=== PATIENT | female | born 1945 | race Caucasian/White ===

== ENCOUNTER 2016-07-14 13:38 | Outpatient (CLI) | payer MEDICARE, MEDICAID ==
[2016-07-14 17:46] LABS: BILIRUBIN,URINE NEGATIVE (NEGATIVE); PH,URINE 5.5 PH (5.0-7.5)
[2016-07-14 17:50] LABS: UA CHARGE (STRIP ONLY) YES; UR CULTURE IF IND NOT INDICATED
[2016-07-14 18:07] LABS: BASOPHILS % (AUTO) 0.7 %; EOSINOPHILS % (AUTO) 0.4 %; HCT - HEMATOCRIT 36.9 % (37.0-47.0); HGB - HEMOGLOBIN 12.7 g/dL (12.0-16.0); LYMPHOCYTES # (AUTO) 1.5 10^3/uL (1.5-3.5); LYMPHOCYTES % (AUTO) 23.3 %; MEAN CORPUSCULAR HEMOGLOBIN 33.2 pg (27.0-31.0); MEAN CORPUSCULAR HGB CONC 34.3 g/dL (32.0-36.0); MEAN CORPUSCULAR VOLUME 96.6 fL (81.0-99.0); MEAN PLATELET VOLUME 7.7 fL (7.9-10.8); MONOCYTES # (AUTO) 0.6 10^3/uL (0.0-1.0); MONOCYTES % (AUTO) 9.8 %; NEUTROPHILS # (AUTO) 4.1 10^3/uL (1.5-6.6); NEUTROPHILS % (AUTO) 65.8 %; NUCLEATED RED BLOOD CELLS AUTO 0.1 /100WBC; RED BLOOD COUNT 3.82 10^6/uL (4.20-5.40); RED CELL DISTRIBUTION WIDTH 14.1 % (12.0-15.0); UNCORRECTED WHITE BLOOD COUNT 6.2 x10^3/uL; WHITE BLOOD COUNT 6.2 x10^3/uL (4.8-10.8)
[2016-07-14 18:44] LABS: ALBUMIN/GLOBULIN RATIO 1.3 (1.0-2.2); BILIRUBIN,TOTAL 0.7 mg/dL (0.2-1.0); BUN - BLOOD UREA NITROGEN 13 mg/dL (6-20); CARBON DIOXIDE - CO2 27 mmol/L (21-32); CHLORIDE 105 mmol/L (101-111); CHOL/HDL RATIO 2.4 (<4.4); CHOLESTEROL 185 mg/dL; CREATININE 0.7 mg/dL (0.4-1.0); GFR - MDRD 83 (>89); GLUCOSE 124 mg/dL (70-100); HDL CHOLESTEROL 78 mg/dL; LDL/HDL RATIO 1.1 (<4.4); POTASSIUM 3.9 mmol/L (3.5-5.0); SODIUM 138 mmol/L (135-145); TOTAL PROTEIN 6.3 g/dL (6.7-8.2); TRIGLYCERIDES 107 mg/dL; VLDL CHOLESTEROL 21 mg/dL
== END 2016-07-14 13:39 | disposition home or self-care (01) ==
LOC: LAB.F 13:38
PROVIDERS: ATTEND Internal Medicine Rheumatology
DX: L93.2 Other local lupus erythematosus (principal); M81.0 Age-related osteoporosis without current pathological fracture; Z51.81 Encounter for therapeutic drug level monitoring
CPT/HCPCS: 36415; 80053; 80061; 81001; 81003; 85025; 87086

== ENCOUNTER 2016-10-28 14:21 | Outpatient (CLI) | payer MEDICARE, MEDICAID ==
[2016-10-28 17:56] LABS: BASOPHILS % (AUTO) 0.4 %; EOSINOPHILS % (AUTO) 0.3 %; HGB - HEMOGLOBIN 13.6 g/dL (12.0-16.0); LYMPHOCYTES # (AUTO) 0.7 10^3/uL (1.5-3.5); LYMPHOCYTES % (AUTO) 8.8 %; MEAN CORPUSCULAR HEMOGLOBIN 33.9 pg (27.0-31.0); MEAN CORPUSCULAR HGB CONC 34.8 g/dL (32.0-36.0); MEAN CORPUSCULAR VOLUME 97.3 fL (81.0-99.0); MEAN PLATELET VOLUME 7.3 fL (7.9-10.8); MONOCYTES # (AUTO) 0.4 10^3/uL (0.0-1.0); MONOCYTES % (AUTO) 5.2 %; NEUTROPHILS # (AUTO) 6.5 10^3/uL (1.5-6.6); NEUTROPHILS % (AUTO) 85.3 %; RED BLOOD COUNT 4.01 10^6/uL (4.20-5.40); RED CELL DISTRIBUTION WIDTH 13.5 % (12.0-15.0); UNCORRECTED WHITE BLOOD COUNT 7.7 x10^3/uL; WHITE BLOOD COUNT 7.7 x10^3/uL (4.8-10.8)
[2016-10-28 18:21] LABS: ALBUMIN/GLOBULIN RATIO 1.5 (1.0-2.2); BILIRUBIN,TOTAL 0.6 mg/dL (0.2-1.0); BUN - BLOOD UREA NITROGEN 13 mg/dL (6-20); CALCIUM 9.5 mg/dL (8.5-10.3); CARBON DIOXIDE - CO2 28 mmol/L (21-32); CHLORIDE 101 mmol/L (101-111); CHOL/HDL RATIO 2.5 (<4.4); CHOLESTEROL 190 mg/dL; CREATININE 0.8 mg/dL (0.4-1.0); GFR - MDRD 71 (>89); GLUCOSE 102 mg/dL (70-100); HDL CHOLESTEROL 76 mg/dL; LDL/HDL RATIO 1.4 (<4.4); POTASSIUM 4.2 mmol/L (3.5-5.0); SODIUM 136 mmol/L (135-145); TOTAL PROTEIN 6.7 g/dL (6.7-8.2); TRIGLYCERIDES 55 mg/dL; VLDL CHOLESTEROL 11 mg/dL
== END 2016-10-28 14:22 | disposition home or self-care (01) ==
LOC: LAB.F 14:21
PROVIDERS: ATTEND Internal Medicine Rheumatology
DX: L93.2 Other local lupus erythematosus (principal); M35.1 Other overlap syndromes; Z79.899 Other long term (current) drug therapy
CPT/HCPCS: 36415; 80053; 80061; 85025; 86140

== ENCOUNTER 2018-08-18 09:02 | Day surgery (SDC) | payer MEDICARE, MEDICAID ==
[2018-08-18] MEDS ORDERED: LACTATED RINGERS 1,000 ML IV ONE ×2 (09:34→12:15)
[2018-08-18] MEDS ORDERED: MIDAZOLAM 2 MG/2 ML VIAL IVP ONE (11:40)
[2018-08-18] MEDS ORDERED: fentaNYL 250 MCG/5 ML VIAL IVP ONE (11:40)
[2018-08-18 13:28] VITALS: BP 110/68
== END 2018-08-18 09:03 | disposition home or self-care (01) ==
LOC: SDS 09:02
PROVIDERS: ATTEND Surgery
PROC: 0DBN8ZZ Excision of Sigmoid Colon, Via Natural or Artificial Opening Endoscopic (ICD-10-PCS; 2018-08-18)
PROC: 0DBP8ZZ Excision of Rectum, Via Natural or Artificial Opening Endoscopic (ICD-10-PCS; 2018-08-18)
PROC: 0DBH8ZZ Excision of Cecum, Via Natural or Artificial Opening Endoscopic (ICD-10-PCS; principal; 2018-08-18 10:30)
DX: K57.31 Diverticulosis of large intestine without perforation or abscess with bleeding (principal); D12.0 Benign neoplasm of cecum; D12.5 Benign neoplasm of sigmoid colon; D12.8 Benign neoplasm of rectum; Z80.0 Family history of malignant neoplasm of digestive organs; Z87.891 Personal history of nicotine dependence
CPT/HCPCS: 45380; 45385; 81599; 83630; 87045; 87046; 87177; 87209; 87493; J3010; J7120; 87015; 87272; 87329

== ENCOUNTER 2018-12-31 14:29 | Outpatient (CLI) | payer MEDICARE, MEDICAID ==
--- NOTE | 2019-01-01 22:33 | XRAY Report ---
Reason: PAIN IN LEFT KNEE, BILAT ANKEL JOINTS Procedure Date: 12/31/2018 Accession Number: [id number] / [id number] Procedure: XRS - Knee 3 View LT CPT Code: Final Report FULL RESULT: EXAM: LEFT KNEE RADIOGRAPHY EXAM DATE: 12/31/2018 03:04 PM. CLINICAL HISTORY: PAIN IN LEFT KNEE, BILAT ANKEL JOINTS. COMPARISON: None. TECHNIQUE: 3 views. FINDINGS: Bones: No fractures or bone lesions. Mild decreased osseous mineralization subjectively. Joints: No significant joint space narrowing. Soft Tissues: No significant soft tissue abnormalities. IMPRESSION: 1. No acute osseous abnormalities. 2. No significant degenerative changes. 3. Mild decreased osseous mineralization subjectively. RADIA
--- NOTE | 2019-01-01 22:47 | XRAY Report ---
Reason: FELL YESTERDAY, LEFT KNEE, ANKLE AND FOOT Procedure Date: 12/31/2018 Accession Number: [id number] / [id number] Procedure: XRS - Ankle 3 View BILAT CPT Code: Final Report FULL RESULT: EXAMS: 1. Right Ankle Radiography 2. Left Ankle Radiography EXAM DATE: 12/31/2018 03:04 PM. CLINICAL HISTORY: FELL YESTERDAY, LEFT KNEE, ANKLE AND FOOT. COMPARISON: KNEE 3 VIEW LT 12/31/2018 3:08 PM. TECHNIQUE: 3 views each ankle. (6 images total) FINDINGS: Right Ankle: Bones: The bones are osteopenic. Acute avulsion fracture of the tip of the lateral malleolus. Joints: No dislocation. Tibiotalar joint effusion. Mild degenerative changes. Soft Tissues: Soft tissue swelling about the ankle, most pronounced overlying the lateral malleolus. Left Ankle: Bones: The bones are osteopenic. Acute avulsion fracture of the talar head. Joints: Large tibiotalar joint effusion. No dislocation. Mild degenerative changes. Soft Tissues: Soft tissue swelling about the ankle. IMPRESSION: 1. Left ankle: Acute talar head avulsion fracture. 2. Right ankle: Acute avulsion fracture of the tip of the lateral malleolus. RADIA
== END 2018-12-31 14:30 | disposition home or self-care (01) ==
LOC: DI.S 14:29
PROVIDERS: ATTEND Nurse Practitioner Family
DX: S92.152A Displaced avulsion fracture (chip fracture) of left talus, initial encounter for closed fracture (principal); S82.61XA Displaced fracture of lateral malleolus of right fibula, initial encounter for closed fracture; M25.562 Pain in left knee

== ENCOUNTER 2020-08-23 09:28 | Outpatient (CLI) | payer MEDICARE, MEDICAID ==
--- NOTE | 2020-08-23 12:48 | XRAY Report ---
PROCEDURE: Foot 3 View LT INDICATIONS: SKIN LESION OF FOOT TECHNIQUE: 3 views of the left foot foot were acquired, along with an AP view of the right foot. COMPARISON: Left foot radiographs 10/22/2015, right foot radiographs 08/16/2013 FINDINGS: Bones: Generalized osteopenia. Mild cortical irregularity at the distal portion of the second proxim al phalanx is new when compared to the prior radiographs and may represent a minimally displaced frac ture without definite intra-articular extension. Dorsal lateral dislocation of the left third metatar sophalangeal joint does not appear significantly changed when compared to the prior radiographs from 2015. There is mild bilateral hallux valgus. Scattered degenerative changes are seen in the interphal angeal joints of the toes. Soft tissues: No suspicious soft tissue calcification. IMPRESSION: 1. Possible minimally displaced fracture involving the distal portion of the second proximal phalanx . Recommend correlation for point tenderness. 2. 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 Reviewed by: Collin Robert MD on 08/23/2020 12:46 PM PDT Approved by: Collin Robert MD on 08/23/2020 12:46 PM PDT Station ID: [id number]
== END 2020-08-23 23:59 | disposition home or self-care (01) ==
LOC: DI.N 09:28
PROVIDERS: ATTEND Orthopaedic Surgery
DX: L98.9 Disorder of the skin and subcutaneous tissue, unspecified (principal); M24.475 Recurrent dislocation, left foot

== ENCOUNTER 2021-02-26 09:44 | Day surgery (SDC) | payer MEDICARE, MEDICAID ==
[2021-02-26] MEDS ORDERED: LACTATED RINGERS 1,000 ML IV ONE ×2 (10:14→12:19)
--- NOTE | 2021-02-26 10:45 | ANESTHESIA ---
Pre-Anesthesia VS, & Labs - Diagnosis hx of colon polyps - Procedure colonoscopy Vital Signs: Temp Pulse Resp BP Pulse Ox 36.7 C 95 14 130/76 100 02/26/21 10:01 02/26/21 10:01 02/26/21 10:01 02/26/21 10:01 02/26/21 10:01 Height: 5 ft 2 in Weight (kg): 54.7 kg Body Mass Index: 22.0 BMI Classification: Healthy weight - NPO >8 hours - Is Patient ?: No - Lab Results Lab results reviewed: Yes Home Medications and Allergies Home Medications: Ambulatory Orders Methotrexate Sodium/Pf [Methotrexate 25 mg/ml Vial] 25 mg IJ OAW 02/25/21 predniSONE [Prednisone] 5 mg PO DAILY 06/08/13 Hydroxychloroquine [Plaquenil] 200 mg PO DAILY 06/09/13 Methotrexate Sodium/Pf [Methotrexate 25 mg/ml Vial] 25 mg IJ OAW 02/25/21 Allergies/Adverse Reactions: Allergies Allergy/AdvReac Type Severity Reaction Status Date / Time Penicillins Allergy Anaphylaxis Verified 02/25/21 14:04 Anes History & Medical History - Anesthetic History Anesthesia Complications: reports: No previous complications Family history of Anesthesia Complications: Denies Family history of Malignant Hyperthermia: Denies - Medical History Cardiovascular: reports: None Pulmonary: reports: None Gastrointestinal: reports: GI bleed Urinary: reports: None Musculoskeletal: reports: None Endocrine/Autoimmune: reports: Systemic lupus erythematosus Blood Disorders: reports: None Skin: reports: None Smoking Status: Former smoker - Surgical History General: reports: Colonoscopy Exam General: Alert, Oriented x3, Cooperative, No acute distress Dental: WNL Mouth Openin Fingerbreadth Neck Mobility: Normal Mallampati classification: I Plan Anesthesia Type: General, Total IV Consent for Procedure(s) Verified and Reviewed: Yes Code Status: Attempt Resuscitation ASA classification: 2-Mild systemic disease Is this case an emergency?: No
[2021-02-26] MEDS ORDERED: PROPOFOL 500 MG/50 ML 500 MG/50 ML VIAL ONE (11:23)
[2021-02-26] MEDS ORDERED: LIDOCAINE JELLY 2% 6 ML JEL.PF.APP TOP ONE (12:13)
[2021-02-26] MEDS ORDERED: LIDOCAINE JELLY 2% 6 ML JEL.PF.APP ONE (12:21)
--- NOTE | 2021-02-26 12:33 | ANESTHESIA POST OP EVALUATION ---
Anesthesia Post Eval - Post Anesthesia Eval Vitals: Last Vital Signs Temp 36 C L 02/26/21 12:19 Pulse 72 02/26/21 12:19 Resp 16 02/26/21 12:19 BP 106/56 L 02/26/21 12:19 Pulse Ox 100 02/26/21 12:19 CV Function Including HR & BP: Stable Pain Control: Satisfactory Nausea & Vomiting: Negative Mental Status: Baseline Respiratory Status: Airway Patent Hydration Status: Satisfactory Anesthesia Complications: None
[2021-02-26 13:02] VITALS: BP 125/69
== END 2021-02-26 09:45 | disposition home or self-care (01) ==
LOC: SDS 09:44
PROVIDERS: ATTEND Surgery
PROC: 0DBL8ZZ Excision of Transverse Colon, Via Natural or Artificial Opening Endoscopic (ICD-10-PCS; 2021-02-26)
PROC: 0DBE8ZZ Excision of Large Intestine, Via Natural or Artificial Opening Endoscopic (ICD-10-PCS; 2021-02-26)
PROC: 0DBN8ZZ Excision of Sigmoid Colon, Via Natural or Artificial Opening Endoscopic (ICD-10-PCS; principal; 2021-02-26 11:45)
DX: Z12.11 Encounter for screening for malignant neoplasm of colon (principal); D12.5 Benign neoplasm of sigmoid colon; K63.5 Polyp of colon; K64.5 Perianal venous thrombosis; K57.30 Diverticulosis of large intestine without perforation or abscess without bleeding; D12.9 Benign neoplasm of anus and anal canal; Z87.891 Personal history of nicotine dependence; D89.89 Other specified disorders involving the immune mechanism, not elsewhere classified
CPT/HCPCS: 45380; 45385; J7120

== ENCOUNTER 2021-07-09 08:00 | Outpatient (CLI) | payer MEDICARE, MEDICAID | END 2021-07-09 23:59 | disposition home or self-care (01) | LOC: LAB.S 08:00 | PROVIDERS: ATTEND Physician Assistant Medical | DX: S81.802A Unspecified open wound, left lower leg, initial encounter (principal) | CPT/HCPCS: 87070; 87075 ==

== ENCOUNTER 2021-07-12 08:00 | Outpatient (CLI) | payer MEDICARE, MEDICAID | END 2021-07-12 23:59 | disposition home or self-care (01) | LOC: LAB.S 08:00 | PROVIDERS: ATTEND Emergency Medicine | DX: S81.802A Unspecified open wound, left lower leg, initial encounter (principal) | CPT/HCPCS: 87070; 87205 ==

== ENCOUNTER 2022-09-01 07:58 | Outpatient (CLI) | payer MEDICARE, MEDICAID ==
--- NOTE | 2022-09-01 13:32 | XRAY Report ---
PROCEDURE: Wrist 3 View RT INDICATIONS: SPRAIN OF RIGHT WRIST TECHNIQUE: 3 views of the wrist were acquired. COMPARISON: None. FINDINGS: Bones: Decreased mineralization. Minimally displaced impacted fracture across the distal radial meta physis. The radiocarpal alignment remains normal. There is a nondisplaced ulnar styloid fracture. Soft tissues: No suspicious soft tissue calcifications or masses. Dorsal and volar soft tissue swe lling. IMPRESSION: 1. Impacted transverse distal radius fracture. Involvement of the articular surface cannot be entirel y excluded but is not well seen on these films. 2. Nondisplaced ulnar styloid fracture. Reviewed by: Tanika Gaffney MD on 09/01/2022 12:01 PM PDT Approved by: Tanika Gaffney MD on 09/01/2022 12:01 PM PDT Station ID: [id number]
== END 2022-09-01 23:59 | disposition home or self-care (01) ==
LOC: DI.S 07:58
PROVIDERS: ATTEND Physician Assistant Medical
DX: S52.591A Other fractures of lower end of right radius, initial encounter for closed fracture (principal); S52.614A Nondisplaced fracture of right ulna styloid process, initial encounter for closed fracture

== ENCOUNTER 2022-09-08 08:00 | Outpatient (CLI) | payer MEDICARE, MEDICAID ==
--- NOTE | 2022-09-09 08:39 | XRAY Report ---
PROCEDURE: Wrist 3 View RT INDICATIONS: RIGHT WRIST FRACTURE TECHNIQUE: 3 views of the wrist were acquired. COMPARISON: X-ray right wrist, 09/01/2022. FINDINGS: Bones: Radial metaphyseal fracture with mild impaction and displacement. Menisci unchanged. Ulnar styloid fracture noted. No suspicious bony lesions. Osteopenia. Soft tissues: No suspicious soft tissue calcifications or masses. IMPRESSION: 1. No change in the appearance of radial metaphyseal fracture. 2. Ulnar styloid fracture. Reviewed by: Sherice Jackson MD on 09/09/2022 8:37 AM PDT Approved by: Sherice Jackson MD on 09/09/2022 8:37 AM PDT Station ID: [id number]
== END 2022-09-08 23:59 | disposition home or self-care (01) ==
LOC: DI.WOS 08:00
PROVIDERS: ATTEND Orthopaedic Surgery
DX: S52.351D Displaced comminuted fracture of shaft of radius, right arm, subsequent encounter for closed fracture with routine healing (principal); S52.611D Displaced fracture of right ulna styloid process, subsequent encounter for closed fracture with routine healing

== ENCOUNTER 2022-10-07 08:00 | Outpatient (CLI) | payer MEDICARE, MEDICAID ==
--- NOTE | 2022-10-08 22:08 | XRAY Report ---
PROCEDURE: Wrist 3 View RT INDICATIONS: RIGHT WRIST FX TECHNIQUE: 3 views of the wrist were acquired. COMPARISON: X-ray right wrist, 09/08/2022. FINDINGS: Bones: There is a radial metaphyseal fracture with impaction. Increased sclerosis along the fracture line is noted consistent with healing. No suspicious bony lesions. Mild degenerative joint disease. Osteopenia. Soft tissues: No suspicious soft tissue calcifications or masses. IMPRESSION: 1. Healing distal radial metaphyseal fracture. Reviewed by: Sherice Jackson MD on 10/08/2022 10:07 PM PDT Approved by: Sherice Jackson MD on 10/08/2022 10:07 PM PDT Station ID: [id number]
== END 2022-10-07 23:59 | disposition home or self-care (01) ==
LOC: DI.WOS 08:00
PROVIDERS: ATTEND Physician Assistant Surgical
DX: S52.531D Colles' fracture of right radius, subsequent encounter for closed fracture with routine healing (principal)

== ENCOUNTER 2023-07-09 08:40 | Day surgery (SDC) | payer MEDICARE, MEDICAID ==
[2023-07-09] MEDS: LACTATED RINGERS 1,000 ML IV ONE ×3 (08:47→11:03)
[2023-07-09] MEDS: SALINE ENEMA 133 ML BOTTLE RC ONE ×2 (09:28→09:36)
[2023-07-09] MEDS ORDERED: LIDOCAINE-MPF 2% 5 ML VIAL ONE (09:42)
[2023-07-09] MEDS ORDERED: PROPOFOL 200 MG/20 ML VIAL IVP ONE (09:42)
--- NOTE | 2023-07-09 10:14 | ANESTHESIA ---
Pre-Anesthesia VS, & Labs - Diagnosis large rectal polyp - Procedure sigmoidsocopy Height: 5 ft 7.72 in Weight (kg): 55 kg Body Mass Index: 18.6 BMI Classification: Normal - NPO >8 hours - Is Patient ?: No Home Medications and Allergies predniSONE [Prednisone] 5 mg PO DAILY 06/08/13 Hydroxychloroquine [Plaquenil] 200 mg PO DAILY 06/09/13 Methotrexate Sodium/Pf [Methotrexate 25 mg/ml Vial] 25 mg IJ OAW 02/25/21 Allergies/Adverse Reactions: Allergies Allergy/AdvReac Type Severity Reaction Status Date / Time Penicillins Allergy Anaphylaxis Verified 07/09/23 09:12 Anes History & Medical History - Anesthetic History Anesthesia Complications: reports: No previous complications - Medical History Cardiovascular: reports: None Pulmonary: reports: None Gastrointestinal: reports: GI bleed, Other Urinary: reports: None Musculoskeletal: reports: None Endocrine/Autoimmune: reports: Systemic lupus erythematosus Blood Disorders: reports: None Skin: reports: None Smoking Status: Former smoker - Surgical History General: reports: Colonoscopy Exam General: Alert, Oriented x3 Dental: WNL Mouth Opening: Greater than 4 Fingerbreadths Neck Mobility: Normal Mallampati classification: II Thyromental Distance: greater than 6 cm Respiratory: Lungs clear Cardiovascular: Regular rate Plan Anesthesia Type: Total IV Consent for Procedure(s) Verified and Reviewed: Yes Code Status: Attempt Resuscitation ASA classification: 2-Mild systemic disease Is this case an emergency?: No
[2023-07-09 11:28] VITALS: BP 113/80; O2SAT 96
--- NOTE | 2023-07-09 11:38 | ANESTHESIA POST OP EVALUATION ---
Anesthesia Post Eval - Post Anesthesia Eval Vitals: Last Vital Signs Temp 36.5 C 07/09/23 11:03 Pulse 74 07/09/23 11:23 Resp 16 07/09/23 11:23 BP 113/80 07/09/23 11:23 Pulse Ox 96 07/09/23 11:23 O2 Flow Rate CV Function Including HR & BP: Stable Pain Control: Satisfactory Nausea & Vomiting: Negative Mental Status: Baseline Respiratory Status: Airway Patent Hydration Status: Satisfactory Anesthesia Complications: None
== END 2023-07-09 08:41 | disposition home or self-care (01) ==
LOC: SDS 08:40
PROVIDERS: ATTEND Surgery
PROC: 0DBP8ZZ Excision of Rectum, Via Natural or Artificial Opening Endoscopic (ICD-10-PCS; principal; 2023-07-09 10:30)
DX: Z12.11 Encounter for screening for malignant neoplasm of colon (principal); D12.8 Benign neoplasm of rectum; Z87.891 Personal history of nicotine dependence
CPT/HCPCS: 45338; A9270; J7120